=== PATIENT | female | born 1975 | race Caucasian/White ===

== ENCOUNTER 2016-11-04 09:30 | Emergency (ER) | payer OTHER ==
[~2016-11-04] VITALS: Ht 167.6 cm; Wt 140.3 kg
[~2016-11-04 09:30] MED LIST: ALBUTEROL SULF8.5 GM IH; ALBUTEROL1.25 MG/3 IH; AMOXICILLIN500 M1 PO; CARDIZEM CD,CA240 MG PO; CARDIZEM CD240 MG PO; CARDIZEM90 MG PO; CARTIA XT300 MG PO; CYCLOBENZAPRINE10 MG PO; DIAZEPAM2 MG PO; FLEXERIL10 MG PO; FLEXERIL5 MG PO; HYDROCHLOROTHIA25 MG PO; HYDROCODON-ACE1 EAC7 PO; IBUPROFEN600 MG PO; LASIX40 MG PO; LYRICA200 MG PO; MEDROL DOSEPAK4 MG PO; MOTRIN600 MG PO; OXYCODONE HCL30 MG PO; OXYCODONE HCL5 MG PO; OXYCONTIN30 MG PO; PERCOCET 10-321 EACH PO; PREDNISONE50 MG PO; PROVENTIL,2.5 MG/3 M IH; PROVENTIL,200 INHALA IH; RANITIDINE HCL300 MG PO; ROBITUSSIN AC,T10 ML PO; ROXICODONE15 MG PO; ROXICODONE30 MG PO; SYMBICORT60 INHALA1 IH; TORADOL10 MG PO; VALIUM2 MG PO; ZANTAC150 MG PO; ZANTAC300 MG PO; ZITHROMAX TRI-500 MG PO
[2016-11-04 09:37] VITALS: BP 156/103
== END 2016-11-04 10:55 | disposition left against medical advice (07) ==
LOC: EME 09:30
DX: S00.86XA Insect bite (nonvenomous) of other part of head, initial encounter (principal); Z53.21 Procedure and treatment not carried out due to patient leaving prior to being seen by health care provider

== ENCOUNTER 2017-01-10 10:16 | Emergency (ER) | payer OTHER ==
[~2017-01-10] VITALS: Ht 167.6 cm; Wt 139.5 kg
[2017-01-10 10:57] VITALS: BP 149/109
== END 2017-01-10 13:00 | disposition home or self-care (01) ==
LOC: EME 10:16
DX: M79.89 Other specified soft tissue disorders (principal); F17.200 Nicotine dependence, unspecified, uncomplicated; J45.909 Unspecified asthma, uncomplicated
CPT/HCPCS: 93971; 99281; 99284

== ENCOUNTER 2017-07-12 17:25 | Emergency (ER) | payer OTHER ==
[~2017-07-12] VITALS: Ht 167.6 cm; Wt 142.2 kg
[2017-07-12] MEDS ORDERED: AUGMENTIN875 MG PO (17:56)
[2017-07-12 18:19] VITALS: BP 149/85
== END 2017-07-12 18:20 | disposition home or self-care (01) ==
LOC: EME 17:25
DX: H66.92 Otitis media, unspecified, left ear (principal); R59.0 Localized enlarged lymph nodes; I10 Essential (primary) hypertension; F17.200 Nicotine dependence, unspecified, uncomplicated

== ENCOUNTER 2017-07-14 06:44 | Emergency (ER) | payer OTHER ==
[~2017-07-14] VITALS: Ht 167.6 cm; Wt 142.7 kg
[~2017-07-14 06:44] MED LIST changes: +AUGMENTIN875 MG PO
[2017-07-14 07:02] VITALS: BP 165/119
== END 2017-07-14 07:07 | disposition left against medical advice (07) ==
LOC: EME 06:44
DX: R42 Dizziness and giddiness (principal); R53.83 Other fatigue; Z53.21 Procedure and treatment not carried out due to patient leaving prior to being seen by health care provider

== ENCOUNTER 2017-12-19 14:31 | Emergency (ER) | payer OTHER ==
[~2017-12-19] VITALS: Ht 167.6 cm; Wt 138.8 kg
[2017-12-19 14:42] VITALS: BP 125/98
[2017-12-19 15:10] LABS: APPEARANCE SL.HAZY ((CLEAR)); BILIRUBIN NEGATIVE; BLOOD NEGATIVE; COLOR YELLOW ((YELLOW)); GLUCOSE (STRIP) NEGATIVE; KETONES NEGATIVE; LEUKOCYTES SMALL; NITRITE NEGATIVE; PROTEIN (STRIP) NEGATIVE; UROBILINOGEN 0.2 MG/DL (0.2-1.0)
[2017-12-19 15:14] LABS: BACTERIA NONE SEEN /HPF; EPITHELIAL CELLS 1+ /HPF; MUCUS TRACE /LPF; RED BLOOD CELLS 0-5 /HPF (0-5); WHITE BLOOD CELLS 0-5 /HPF (0-5)
== END 2017-12-19 15:31 | disposition left against medical advice (07) ==
LOC: EME 14:31
DX: R30.0 Dysuria (principal); R31.9 Hematuria, unspecified; R35.0 Frequency of micturition; R10.9 Unspecified abdominal pain; Z87.440 Personal history of urinary (tract) infections; I10 Essential (primary) hypertension; J44.9 Chronic obstructive pulmonary disease, unspecified; F17.200 Nicotine dependence, unspecified, uncomplicated; Z53.20 Procedure and treatment not carried out because of patient's decision for unspecified reasons
CPT/HCPCS: 80053; 81003; 84702; 85027; 99281; 99283